=== PATIENT | male | born 1985 | race Caucasian/White ===

== ENCOUNTER 2021-05-08 20:44 | Emergency (ER) | payer OTHER ==
[2021-05-08 21:37] LABS: BASOPHIL 0.4 % (0-2); EOSINOPHIL 1.5 % (0-5); HCT 45.2 % (42.0-52.0); HGB 15.2 g/dl (13.2-18.0); LYMPHOCYTE 36.5 % (15-48); MCH 31.3 pg (25.0-31.0); MCHC 33.6 g/dL (32.0-36.0); MCV 93.2 fL (78.0-100.0); MONOCYTE 7.4 % (0-12); MPV 9.9 fL (6.0-9.5); NEUTROPHIL 53.9 % (41-80); NRBC 0; PLT 225 K/uL (150-400); RBC 4.85 M/uL (4.70-6.00); RDW 12.1 % (11.5-14.0); WBC 9.9 K/uL (4.0-10.5)
[2021-05-08 21:53] LABS: BILIRUBIN - TOTAL 0.2 mg/dL (0.2-1.0); BUN/CREAT RATIO (CALC) 7.2 RATIO; CREATININE 1.52 mg/dL (0.67-1.17); GLOBULIN (CALCULATION) 3.5 g/dL; POTASSIUM 3.8 mmol/L (3.5-5.1); TOTAL PROTEIN 7.5 g/dL (6.4-8.2)
[2021-05-08] MEDS ORDERED: ONDANSETRON ODT4 MG PO (22:49)
[2021-05-08] MEDS ORDERED: NORCO 5-325 TA1 EACH PO (22:49)
== END 2021-05-08 23:06 | disposition home or self-care (01) ==
LOC: FER 20:44
PROVIDERS: Emergency Medicine
DX: R10.11 Right upper quadrant pain (principal)
CPT/HCPCS: 36415; 80053; 82150; 83690; 85025; J7030; Q9967

== ENCOUNTER 2021-06-24 11:27 | Emergency (ER) | payer OTHER ==
[~2021-06-24 11:27] MED LIST: NORCO 5-325 TA1 EACH PO; ONDANSETRON ODT4 MG PO
[2021-06-24 12:53] LABS: BASOPHIL 0.5 % (0-2); EOSINOPHIL 1.6 % (0-5); HCT 47.3 % (42.0-52.0); HGB 15.9 g/dl (13.2-18.0); LYMPHOCYTE 38.2 % (15-48); MCH 31.4 pg (25.0-31.0); MCHC 33.6 g/dL (32.0-36.0); MCV 93.5 fL (78.0-100.0); MONOCYTE 8.3 % (0-12); MPV 10.2 fL (6.0-9.5); NRBC 0; PLT 215 K/uL (150-400); RBC 5.06 M/uL (4.70-6.00); RDW 12.7 % (11.5-14.0); WBC 7.4 K/uL (4.0-10.5)
[2021-06-24 13:07] LABS: BILIRUBIN NEGATIVE (NEGATIVE); BLOOD TRACE-INTACT Ery/uL (NEGATIVE); CLARITY CLEAR (CLEAR); COLOR YELLOW (YELLOW); GLUCOSE (U) NORMAL (NORMAL); LEUKOCYTES NEGATIVE Leu/uL (NEGATIVE); NITRITE NEGATIVE (NEGATIVE); PROTEIN NEGATIVE (NEGATIVE); UROBILINOGEN 0.2 mg/dL (0.2-1.0)
[2021-06-24 13:12] LABS: BACTERIA TRACE; SQUAMOUS EPITHELIAL CELLS RARE; URINARY RBC RARE
[2021-06-24 13:14] LABS: ALBUMIN 4.1 g/dL (3.4-5.0); BILIRUBIN - TOTAL 0.5 mg/dL (0.2-1.0); BUN/CREAT RATIO (CALC) 9.6 RATIO; CREATININE 1.04 mg/dL (0.67-1.17); GLOBULIN (CALCULATION) 3.2 g/dL; TOTAL PROTEIN 7.3 g/dL (6.4-8.2)
[2021-06-24] MEDS ORDERED: PERCOCET 7.5/321 TAB PO (15:43)
[2021-06-24] MEDS ORDERED: ONDANSETRON ODT4 MG PO (15:43)
[2021-06-27] MEDS ORDERED: BUSPIRONE HCL7.5 MG PO (15:01)
[2021-06-27] MEDS ORDERED: CELEXA20 MG PO (15:02)
[2021-06-27] MEDS ORDERED: COZAAR25 MG PO (15:02)
[2021-06-27] MEDS ORDERED: PROTONIX 40MG T40 MG PO (15:03)
[2021-06-27] MEDS ORDERED: METOPROLOL SUCC50 MG PO (15:03)
== END 2021-06-24 15:56 | disposition home or self-care (01) ==
LOC: FER 11:27
PROVIDERS: Nurse Practitioner Family
DX: R10.9 Unspecified abdominal pain (principal); K82.8 Other specified diseases of gallbladder; I10 Essential (primary) hypertension
CPT/HCPCS: 36415; 80053; 81001; 85025; J2270; J2405; J7030; Q9967

== ENCOUNTER → 2021-07-02 | Day surgery (SDC) | payer OTHER ==
[~2021-07-02] VITALS: Ht 180.3 cm; Wt 94.8 kg
[~2021-07-02] MED LIST changes: +ACETAMINOPHEN500 M1 PO; +BUSPIRONE HCL7.5 MG PO; +CELEXA20 MG PO; +COLACE100 MG PO; +COZAAR25 MG PO; +METOPROLOL SUCC50 MG PO; +MOTRIN600 MG PO; +OXY-IR 5MG5 MG PO; +PERCOCET 7.5/321 TAB PO; +PROTONIX 40MG T40 MG PO
[2021-07-02 11:40] LABS: BUN/CREAT RATIO (CALC) 11.1 RATIO; CREATININE 0.9 mg/dL (0.67-1.17)
== END | disposition home or self-care (01) ==
LOC: FAS 10:25
PROVIDERS: Anesthesiology
DX: K81.1 Chronic cholecystitis (principal); K82.8 Other specified diseases of gallbladder; I10 Essential (primary) hypertension; K21.9 Gastro-esophageal reflux disease without esophagitis; F41.9 Anxiety disorder, unspecified; F17.200 Nicotine dependence, unspecified, uncomplicated; Z79.899 Other long term (current) drug therapy; Z91.011 Allergy to milk products; Z80.0 Family history of malignant neoplasm of digestive organs; Z72.89 Other problems related to lifestyle
CPT/HCPCS: 36415; 80048; J1170; J1644; J2250; J2405; J2704; J2710; J3010; J7120